=== PATIENT | male | born 1985 | race Caucasian/White ===

== ENCOUNTER 2016-11-09 10:29 | Day surgery (SDC) | payer OTHER ==
[~2016-11-09 10:29] MED LIST: CEFAZOLIN SODIUM 2 GRAM PREMIX 100 ML IV ONE; CEFAZOLIN SODIUM 2 GRAM PREMIX 100 ML IV PRN; IV START KIT ONE; LACTATED RINGERS 1,000 ML ONE
[2016-11-09] MEDS ORDERED: SODIUM CHLORIDE 0.9% FLUSH 0 ML ONE (11:54)
[2016-11-09] MEDS ORDERED: FENTANYL 100 MCG/2 ML VIAL ONE (11:54)
[2016-11-09] MEDS ORDERED: BUPIVACAINE 0.5% W/EPI SDV 30 ML VIAL ONE (11:55)
[2016-11-09] MEDS ORDERED: CEFAZOLIN SODIUM 1,000 MG VIAL ONE (12:00)
[2016-11-09] MEDS ORDERED: SODIUM CHLORIDE 0.9% FLUSH 10 ML ONE (12:00)
[2016-11-09] MEDS ORDERED: ROCURONIUM BROMIDE 10 MG/ML DOSE IV ONE (12:17)
[2016-11-09] MEDS ORDERED: KETOROLAC TROMETHAMINE 30 MG/ML 1 ML VIAL ONE (12:18)
[2016-11-09] MEDS ORDERED: PROPOFOL 20 ML IV ONE (12:18)
[2016-11-09] MEDS ORDERED: HYDROMORPHONE HCL 2 MG/ML SYRINGE ONE (12:18)
[2016-11-09] MEDS ORDERED: METOCLOPRAMIDE HCL 5 MG/ML 2ML VIAL ONE (12:18)
[2016-11-09] MEDS ORDERED: ONDANSETRON 4 MG/2ML 2 ML VIAL ONE (12:18)
[2016-11-09] MEDS ORDERED: METHYLENE BLUE 1% 1ML VIAL ONE (12:19)
[2016-11-09] MEDS ORDERED: MEPERIDINE 25 MG/ML SYRINGE IV PRN (12:36)
[2016-11-09] MEDS ORDERED: LABETALOL HCL 5 MG/ML 20ML VIAL IV PRN (12:36)
[2016-11-09] MEDS ORDERED: ONDANSETRON 4 MG/2ML 2 ML VIAL IV PRN ×2 (12:36→14:05)
[2016-11-09] MEDS ORDERED: NALOXONE HCL 0.4 MG/ML VIAL IV PRN (12:36)
[2016-11-09] MEDS ORDERED: PROMETHAZINE HCL 25 MG/ML VIAL IM PRN (12:36)
[2016-11-09] MEDS ORDERED: MORPHINE SULFATE 4 MG/ML SYRINGE IV PRN (12:36)
[2016-11-09] MEDS ORDERED: LACTATED RINGERS 1,000 ML IV SCH (12:45)
[2016-11-09] MEDS ORDERED: MORPHINE SULFATE 2 MG/ML SYRINGE IV PRN (14:05)
[2016-11-09] MEDS ORDERED: OXYCODONE HCL 5 MG TABLET PO PRN (14:05)
[2016-11-09] MEDS ORDERED: KETOROLAC TROMETHAMINE 30 MG/ML 1 ML VIAL IV PRN (14:05)
[2016-11-09] MEDS ORDERED: OXYCODONE HCL 5 MG TABLET ONE (14:31)
--- NOTE | 2016-11-09 17:58 | OP ---
JEANETTE CYR [id number] DATE OF OPERATION: November 09, 2016 PREOPERATIVE DIAGNOSIS: Pilonidal cyst with abscess. POSTOPERATIVE DIAGNOSIS: Pilonidal cyst with abscess. PROCEDURE: COMPLEX EXCISION OF PILONIDAL CYST WITH CLEFT LIFT FLAP CLOSURE. SURGEON: Madhu Self M.D. FIG WASHER: Jarod Alicia ANESTHESIA: Leandro BillN.Vicky, general endotracheal. INDICATIONS: This is a 31-year-old male with a pilonidal cyst that has a chronic abscess that intermittently drains. He has had prior procedures to excise this but it has recurred. DESCRIPTION: With informed consent, he was taken to the operating room. He was kept in his hospital bed. General endotracheal anesthetic was administered in the bed. He was placed into a prone position with pressure points padded. The buttocks were clipped and then kept apart with tape to the bed. The area was prepped and draped with Betadine. I decided to bring the flap from the left buttock across to the right after elevating the cleft. The extent of this was marked on the skin with a lip going down in a radial fashion toward the anus on the right buttock. I did inject some methylene blue into the pits inferiorly. They did extrude out blue dye at the most cephalad area where there was probably chronic abcess. An incision was made with a knife. We did encounter one area where there was some blue dye extending into the subcutaneous tissues on his left buttock. I made sure to excise around that. On this left side of the lesion, I did dissect down to the presacral fascia extending over to the skin on the right buttock. I removed only the skin and dermis. Once I had the specimen from the patient, I did probe the pits and the only place where it extended beyond my surgical margin was the one blue area that I know that I excised completely. Specimen was handed off to pathology. The defect to be closed measured 10 x 5 cm. It was 4 cm deep. A flap was created of skin and subcutaneous tissues on the left buttock. I also freed up some of the subcutaneous fat deep around the presacral fascia on both sides so that I could reapproximate that in the midline. A #7 flat drain was placed in the presacral area exiting through a stab incision laterally on the right. The subcutaneous tissues were brought together with multiple layers of #2-0 and #3-0 Vicryl pulling the flap across from left to right. We had good skin approximation once the tapes were loosened. The skin was reapproximated with multiple runs of subcuticular #3-0 PDS. Some intermittent #3-0 nylon were also placed. Liquid Affix solution was placed over the wound. Sterile dressings were applied. Drain was sutured to the skin with a #2-0 nylon and placed to bulb suction. He was then turned back into a supine position, extubated and taken to recovery room in stable condition. A note was made that needle, instrument and lap counts were reported as correct at the time of closure. Cc: Jeanette Bonilla M.D.
--- NOTE | 2016-11-12 12:32 | SURGPATH ---
[facility] [address] [place] [id number] Patient Name: JEANETTE CYR MR#: [id number] : 1985 Gender: M Specimen #: [id number] Collected: 11/09/2016 Received: 11/11/2016 Reported: 11/12/2016 Submitting Phys: SUZY IRVING Copy To Phys: JEANETTE TRAVIS [facility] Clinical History / Pre-Operative Diagnosis: PILONIDAL CYST Specimen Source / Surgical Procedure Performed: PILONIDAL CYST Interpretation: SKIN PILONIDAL CYST, EXCISION: - CONSISTENT WITH PILONIDAL CYST WITH ABSCESS Electronically Signed Out Moreno Bradley M.D. Gross Description: The specimen is received in a formalin filled container labeled with the patient's name and "pilonidal cyst". An elliptical excision of duran skin with subcutaneous tissue is 9.5 x 3.5 x 1.5 cm. Along one lateral edge is a 7 cm crevice. The specimen is multiply cross sectioned to reveal a subcutaneous cystic tract. Two manufacturing sales representative cross sections are submitted in one cassette. Latoya Matthews Microscopic Description: A slide contains skin and subcutaneous fat. Extending deep into the dermis is a partially squamous epithelial lined tract with intraluminal inflammation and hair shaft material. The surrounding stroma is markedly inflamed including sheets of neutrophils. 1: [id number] L05.01
== END 2016-11-09 15:25 | disposition home or self-care (01) ==
LOC: SDC 10:29
PROVIDERS: ATTEND Surgery
PROC: 0JB90ZZ Excision of Buttock Subcutaneous Tissue and Fascia, Open Approach (ICD-10-PCS; principal; 2016-11-09)
PROC: 0HX8XZZ Transfer Buttock Skin, External Approach (ICD-10-PCS; 2016-11-09)
DX: L05.01 Pilonidal cyst with abscess (principal)